=== PATIENT | male | born 1950 | race Caucasian/White ===

== ENCOUNTER 2019-02-19 15:23 | Emergency (ER) | payer MEDICARE ==
[~2019-02-19] VITALS: Ht 177.8 cm; Wt 112.5 kg
== END 2019-02-19 17:01 | disposition home or self-care (01) ==
LOC: ER 15:23
DX: S43.014A Anterior dislocation of right humerus, initial encounter (principal); S43.034A Inferior dislocation of right humerus, initial encounter; W18.30XA Fall on same level, unspecified, initial encounter
CPT/HCPCS: 23650; 73020; 96374-59; 99152; 99283-25; J1170; J2704; J7030

== ENCOUNTER 2019-05-05 03:22 | Emergency (ER) | payer MEDICARE ==
[~2019-05-05] VITALS: Ht 172.7 cm; Wt 113.4 kg
[2019-05-05] MEDS ORDERED: Ventolin/Prove6.7 GM (03:45)
[2019-05-05] MEDS ORDERED: ALLO100 (03:45)
[2019-05-05] MEDS ORDERED: LOSARTAN POTASS50 MG PO (03:46)
[2019-05-05] MEDS ORDERED: Bumetanide2 MG (03:46)
[2019-05-05] MEDS ORDERED: AMLO10 (03:46)
[2019-05-05] MEDS ORDERED: BUDE6HFA INH (03:46)
[2019-05-05] MEDS ORDERED: LABE100 PO (03:46)
[2019-05-05] MEDS ORDERED: Simvastatin10 MG PO (03:46)
== END 2019-05-05 03:55 | disposition home or self-care (01) ==
LOC: ER 03:22
DX: S43.004A Unspecified dislocation of right shoulder joint, initial encounter (principal); J44.9 Chronic obstructive pulmonary disease, unspecified; Z87.891 Personal history of nicotine dependence; W06.XXXA Fall from bed, initial encounter
CPT/HCPCS: 23650; 73030; 99283-25

== ENCOUNTER 2020-09-21 22:34 | Emergency (ER) | payer MEDICARE ==
[~2020-09-21] VITALS: Ht 177.8 cm; Wt 104.3 kg
[~2020-09-21 22:34] MED LIST: ALLO100; AMLO10; BUDE6HFA INH; Bumetanide2 MG; LABE100 PO; LOSARTAN POTASS50 MG PO; Simvastatin10 MG PO; Ventolin/Prove6.7 GM
== END 2020-09-22 02:04 | disposition home or self-care (01) ==
LOC: ER 22:34
DX: S43.014A Anterior dislocation of right humerus, initial encounter (principal); J44.9 Chronic obstructive pulmonary disease, unspecified; Z87.891 Personal history of nicotine dependence; Z79.899 Other long term (current) drug therapy; Z79.52 Long term (current) use of systemic steroids; Z23 Encounter for immunization; W01.0XXA Fall on same level from slipping, tripping and stumbling without subsequent striking against object, initial encounter
CPT/HCPCS: 23650; 36415; 73020; 73030; 90471; 90714; 96374; 99152; 99284-25; J2270; J2704; J7030

== ENCOUNTER → 2020-11-01 | Outpatient (CLI) | payer MEDICARE ==
[2020-11-01 19:18] LABS: Creatinine, Urine Random 33.6 mg/dL (27.00-270.00); Protein, Urine Random 56.6 mg/dL (0.0-11.9); Protein/Creat Ratio, Ur Random 1.7
== END | disposition home or self-care (01) ==
LOC: LAB SHORT 12:58 → LAB 12:58
PROVIDERS: Internal Medicine
DX: N18.4 Chronic kidney disease, stage 4 (severe) (principal)
CPT/HCPCS: 82570; 84156

== ENCOUNTER 2022-07-29 23:01 | Inpatient (IN) | payer MEDICARE ==
[~2022-07-29 23:01] MED LIST changes: -AMLO10; +AMLO10 PO; -BUDE6HFA INH; +BUME2; -Bumetanide2 MG; +LOSA50 PO; -LOSARTAN POTASS50 MG PO; +SYMBICORT 160-4.6 GM INH; -Ventolin/Prove6.7 GM; +Ventolin/Prove6.7 GM INH
[2022-07-30] MEDS ORDERED: AMLO10 PO (15:04)
[2022-07-30] MEDS ORDERED: LOSA50 PO (15:05)
[2022-08-02] MEDS ORDERED: METO50ER PO (09:55)
[2022-08-02] MEDS ORDERED: Tamiflu30 MG PO (09:55)
[2022-08-02] MEDS ORDERED: Prednisone10 MG PO (09:56)
[2022-08-02] MEDS ORDERED: VITAMIN D5000 UNIT PO (09:57)
[2022-08-02] MEDS ORDERED: XARELTO15 MG PO (09:57)
== END 2022-08-02 11:14 | disposition home health service (06) | DRG 65 ==
DX: I63.511 Cerebral infarction due to unspecified occlusion or stenosis of right middle cerebral artery (principal); G81.94 Hemiplegia, unspecified affecting left nondominant side; N17.9 Acute kidney failure, unspecified; I48.21 Permanent atrial fibrillation; J44.1 Chronic obstructive pulmonary disease with (acute) exacerbation; N18.4 Chronic kidney disease, stage 4 (severe); J10.1 Influenza due to other identified influenza virus with other respiratory manifestations; Z23 Encounter for immunization; Z20.822 Contact with and (suspected) exposure to COVID-19; E66.9 Obesity, unspecified; T79.6XXA Traumatic ischemia of muscle, initial encounter; S51.812A Laceration without foreign body of left forearm, initial encounter; S61.512A Laceration without foreign body of left wrist, initial encounter; I12.9 Hypertensive chronic kidney disease with stage 1 through stage 4 chronic kidney disease, or unspecified chronic kidney disease; D63.1 Anemia in chronic kidney disease; E78.5 Hyperlipidemia, unspecified; Z68.35 Body mass index [BMI] 35.0-35.9, adult; Z87.891 Personal history of nicotine dependence; Z79.51 Long term (current) use of inhaled steroids; Z79.899 Other long term (current) drug therapy; W18.39XA Other fall on same level, initial encounter; Y92.009 Unspecified place in unspecified non-institutional (private) residence as the place of occurrence of the external cause

== ENCOUNTER 2022-08-05 10:48 | Emergency (ER) | payer MEDICARE ==
[~2022-08-05] VITALS: Ht 175.3 cm; Wt 104.3 kg
[~2022-08-05 10:48] MED LIST changes: +METO50ER PO; +Prednisone10 MG PO; +Tamiflu30 MG PO; +VITAMIN D5000 UNIT PO; +XARELTO15 MG PO
[2022-08-05 13:35] LABS: Base Excess Venous 2.9 mmol/L; Bicarbonate Venous 25.9 mmol/L (24.0-30.0); PCO2 Venous 44.7 mmHg (38-42)
[2022-08-05 13:36] LABS: BASOPHILS ABSOLUTE AUTO 0.05 K/mm3 (0.00-0.23); BASOPHILS PERCENT AUTO 0 % (0-2); EOSINOPHILS PERCENT AUTO 0 % (0-6); Hematocrit 39.6 % (37.0-53.0); Hemoglobin 13.1 g/dL (13.5-17.5); IMMATURE GRAN ABSOLUTE AUTO 0.81 K/mm3 (0.00-0.10); IMMATURE GRAN PERCENT AUTO 5 % (0-1); LYMPHOCYTES ABSOLUTE AUTO 0.65 K/mm3 (0.84-5.20); LYMPHOCYTES PERCENT AUTO 4 % (21-46); MONOCYTES ABSOLUTE AUTO 1.05 K/mm3 (0.16-1.47); MONOCYTES PERCENT AUTO 6 % (4-13); Mean Corpuscular HGB 31.8 pg (26.0-34.0); Mean Corpuscular HGB Conc 33.1 g/dL (31.5-36.5); Mean Corpuscular Volume 96 fL (80-100); Mean Platelet Volume 9.7 fL (9.1-12.4); NEUTROPHILS ABSOLUTE AUTO 15.35 K/mm3 (1.96-9.15); NEUTROPHILS PERCENT AUTO 86 % (41-73); Platelet Count 311 K/mm3 (150-400); RDW Coefficient Variation 13.7 % (11.7-14.2); Red Blood Cell Count 4.12 M/mm3 (4.30-5.90); White Blood Cell Count 17.91 K/mm3 (4.00-11.30)
[2022-08-05 14:00] LABS: Bun/Creatinine Ratio 21.6 (12.0-20.0); Calcium, Blood 8.5 mg/dL (8.5-10.1); Creatinine, Blood 2.32 mg/dL (0.60-1.20); Potassium, Blood 4.4 mmol/L (3.5-5.5)
[2022-08-05 14:14] LABS: Influenza B, PCR NEGATIVE (NEGATIVE); Resp Syncytial Virus, PCR NEGATIVE (NEGATIVE); SARS-Cov-2 (COVID-19) PCR, MMC NEGATIVE (NEGATIVE)
[2022-08-05 14:15] LABS: Influenza A, PCR POSITIVE (NEGATIVE)
[2022-08-05] MEDS ORDERED: DOXY100 PO (16:53)
[2022-08-05] MEDS ORDERED: FURO20 PO (16:53)
[2022-08-05] MEDS ORDERED: AMOCLA875 PO (16:53)
== END 2022-08-05 17:04 | disposition home or self-care (01) ==
LOC: ER 10:48
PROVIDERS: Student in an Organized Health Care Education/Training Program
DX: J10.1 Influenza due to other identified influenza virus with other respiratory manifestations (principal); R79.89 Other specified abnormal findings of blood chemistry; J18.9 Pneumonia, unspecified organism; J81.1 Chronic pulmonary edema; J44.9 Chronic obstructive pulmonary disease, unspecified; I12.9 Hypertensive chronic kidney disease with stage 1 through stage 4 chronic kidney disease, or unspecified chronic kidney disease; N18.9 Chronic kidney disease, unspecified; Z87.891 Personal history of nicotine dependence; Z20.822 Contact with and (suspected) exposure to COVID-19; Z79.899 Other long term (current) drug therapy; Z79.52 Long term (current) use of systemic steroids; Z79.02 Long term (current) use of antithrombotics/antiplatelets
CPT/HCPCS: 0241U; 71045; 80048; 82803; 83605; 83735; 83880; 85025; 93005; 93010; A9270; J1940

== ENCOUNTER 2024-04-29 08:43 | Inpatient (IN) | payer MEDICARE ==
[~2024-04-29] VITALS: Ht 175.3 cm; Wt 113.4 kg
[2024-04-29] VITALS (25 sets, daily range): BP systolic 109–173; BP diastolic 81–135
[~2024-04-29 08:43] MED LIST changes: +ALBU90OI6 INH; +AMOCLA875 PO; +DOXY100 PO; +FURO20 PO; -Ventolin/Prove6.7 GM INH
[2024-04-29 09:32] LABS: BASOPHILS ABSOLUTE AUTO 0.09 K/mm3 (0.00-0.23); BASOPHILS PERCENT AUTO 1 % (0-2); EOSINOPHILS ABSOLUTE AUTO 0.23 K/mm3 (0.00-0.68); EOSINOPHILS PERCENT AUTO 3 % (0-6); Hematocrit 33.1 % (37.0-53.0); Hemoglobin 10.6 g/dL (13.5-17.5); IMMATURE GRAN ABSOLUTE AUTO 0.09 K/mm3 (0.00-0.10); IMMATURE GRAN PERCENT AUTO 1 % (0-1); LYMPHOCYTES ABSOLUTE AUTO 1.42 K/mm3 (0.84-5.20); LYMPHOCYTES PERCENT AUTO 17 % (21-46); MONOCYTES PERCENT AUTO 11 % (4-13); Mean Corpuscular HGB 31.3 pg (26.0-34.0); Mean Corpuscular Volume 98 fL (80-100); Mean Platelet Volume 10.5 fL (9.1-12.4); NEUTROPHILS ABSOLUTE AUTO 5.58 K/mm3 (1.96-9.15); NEUTROPHILS PERCENT AUTO 67 % (41-73); Platelet Count 228 K/mm3 (150-400); RDW Coefficient Variation 14.7 % (11.7-14.2); RDW Standard Deviation 52.5 fL (35.1-46.3); Red Blood Cell Count 3.39 M/mm3 (4.30-5.90); White Blood Cell Count 8.31 K/mm3 (4.00-11.30)
[2024-04-29 10:03] LABS: Albumin, Blood 1.7 g/dL (3.4-5.0); Albumin/Globulin Ratio 0.5 (0.8-1.8); Bilirubin, Total 0.3 mg/dL (0.1-1.0); Bun/Creatinine Ratio 5.1 (12.0-20.0); Calcium, Blood 6.8 mg/dL (8.5-10.1); Creatinine, Blood 10.9 mg/dL (0.60-1.20); Globulin, Blood 3.7 g/dL (2.2-4.0); Potassium, Blood 4.8 mmol/L (3.5-5.5); Total Protein, Blood 5.4 g/dL (6.4-8.2)
[2024-04-29] MEDS ORDERED: Temazepam 15 MG Cap PO PRN (10:30)
[2024-04-29] MEDS ORDERED: Acetaminophen 325 MG TABLET PO PRN (10:35)
[2024-04-29] MEDS ORDERED: Ondansetron 4 MG TAB PO PRN (10:35)
[2024-04-29] MEDS ORDERED: OxyCODONE HCL 5 MG TAB PO PRN (10:35)
[2024-04-29] MEDS ORDERED: Ondansetron HCl 2 MG / ML 2ML Vial IV PRN (10:35)
[2024-04-29] MEDS ORDERED: HydrALAZINE HCl 20 MG / ML 1ML Vial IV PRN (10:40)
[2024-04-29] MEDS ORDERED: Famotidine 20 MG Tab PO SCH (11:00)
[2024-04-29] MEDS ORDERED: Bumetanide2 MG PO (12:17)
[2024-04-29] MEDS ORDERED: LOSA25 PO (12:22)
[2024-04-29] MEDS ORDERED: Labetalol HCL 5 MG/ML 20MLVIAL IV PRN (13:00)
[2024-04-29] MEDS ORDERED: AmLODIPine Besylate 5 MG Tab PO SCH (14:00)
[2024-04-29 14:20] LABS: International Normalized Ratio 1.01; Prothrombin Time Results 10.8 Sec (9.7-11.5)
[2024-04-29] MEDS ORDERED: Anticoagulant Sod Citrate Soln 3 ML SYR INJ PRN (16:30)
--- NOTE | 2024-04-29 18:59 | NUR ---
Summary. Pt stable this shift. R/IJ trialysis catheter placed this aftenoon by Dr. Roca, pt tolerated procedure well. Dialysis completed post-catheter insertion. Pt tolerated dialysis very well, ate evening meal during treatment and got up independently to bedside commode afterwards. No acute events, see chart for further details.
[2024-04-29] MEDS ORDERED: Mometasone/Formoterol MDI 200/5 mcg 13 GM INH SCH (20:25)
[2024-04-29] MEDS ORDERED: Metoprolol Tartrate 50 MG Tab PO SCH (21:00)
[2024-04-29] MEDS ORDERED: Albuterol 2.5 MG/3 ML VIAL INH PRN (23:25)
[2024-04-30] VITALS (29 sets, daily range): BP systolic 103–157; BP diastolic 71–98
[2024-04-30 03:47] LABS: BASOPHILS ABSOLUTE AUTO 0.06 K/mm3 (0.00-0.23); BASOPHILS PERCENT AUTO 1 % (0-2); EOSINOPHILS ABSOLUTE AUTO 0.19 K/mm3 (0.00-0.68); EOSINOPHILS PERCENT AUTO 2 % (0-6); Hematocrit 30.7 % (37.0-53.0); Hemoglobin 10.1 g/dL (13.5-17.5); IMMATURE GRAN ABSOLUTE AUTO 0.05 K/mm3 (0.00-0.10); IMMATURE GRAN PERCENT AUTO 1 % (0-1); LYMPHOCYTES ABSOLUTE AUTO 1.67 K/mm3 (0.84-5.20); LYMPHOCYTES PERCENT AUTO 19 % (21-46); MONOCYTES ABSOLUTE AUTO 0.96 K/mm3 (0.16-1.47); MONOCYTES PERCENT AUTO 11 % (4-13); Mean Corpuscular HGB 31.1 pg (26.0-34.0); Mean Corpuscular HGB Conc 32.9 g/dL (31.5-36.5); Mean Corpuscular Volume 95 fL (80-100); Mean Platelet Volume 10.1 fL (9.1-12.4); NEUTROPHILS ABSOLUTE AUTO 6.05 K/mm3 (1.96-9.15); NEUTROPHILS PERCENT AUTO 67 % (41-73); Platelet Count 223 K/mm3 (150-400); RDW Coefficient Variation 14.6 % (11.7-14.2); RDW Standard Deviation 49.8 fL (35.1-46.3); Red Blood Cell Count 3.25 M/mm3 (4.30-5.90); White Blood Cell Count 8.98 K/mm3 (4.00-11.30)
--- NOTE | 2024-04-30 04:59 | NUR ---
SHIFT SUMMARY: NO ACUTE CHANGES OVERNIGHT; VSS THROUGHOUT THE SHIFT. PT SLEPT IN RECLINER ON AND OFF THROUGHOUT THE SHIFT. UP MULTIPLE TIMES INDEPENDENTLY TO USE TOILET IN ROOM. PT'S GAIT STEADY. TRIALYSIS CATHETER TO RIJ THAT IS SALINE LOCKED WITH GREEN CAP IN PLACE. LAC PIV PATENT AND SALINE LOCKED. PT INDEPENDENT WITH ADL'S. PT USES CALL LIGHT APPROPRIATELY AND MAKES NEEDS KNOWN. BED LOWERED, CALL LIGHT IN REACH, WILL REPORT OFF TO ONCOMING RN.
[2024-04-30 05:51] LABS: Bun/Creatinine Ratio 5.2 (12.0-20.0); Calcium, Blood 6.7 mg/dL (8.5-10.1); Creatinine, Blood 9.08 mg/dL (0.60-1.20); Potassium, Blood 3.9 mmol/L (3.5-5.5)
[2024-04-30] MEDS ORDERED: Heparin Sodium,Porcine 5,000 UNIT/0.5 ML SDV SC SCH ×2 (09:00→21:00)
[2024-04-30] MEDS ORDERED: Apixaban 5 MG Tab PO SCH (09:00)
[2024-04-30] MEDS ORDERED: Atorvastatin 10 MG Tab PO SCH (09:00)
--- NOTE | 2024-04-30 18:09 | NUR ---
PT IS AWAKE AND SITTING UP IN CHAIR. VSS. DIALYSIS WAS DONE TODAY AND REPORTED THAT THE PTS BP DROPPED SIGNIFICANTLY. BPS HAVE STABILIZED SINCE. PT IS AMBULATING AROUND ROOM AND USING COMMODE INDEPENDENTLY. PT IS ALERT AND ORIENTED, NO ACUTE EVENTS THIS SHIFT, SEE CHART FOR DETAILS.
--- NOTE | 2024-04-30 18:31 | NUR ---
I have observed and read all nursing interventions and documentation by Jayda BORDEN and agree with them.
[2024-05-01] VITALS (8 sets, daily range): BP systolic 123–151; BP diastolic 79–97
[2024-05-01 04:06] LABS: BASOPHILS ABSOLUTE AUTO 0.04 K/mm3 (0.00-0.23); BASOPHILS PERCENT AUTO 1 % (0-2); EOSINOPHILS ABSOLUTE AUTO 0.15 K/mm3 (0.00-0.68); EOSINOPHILS PERCENT AUTO 2 % (0-6); IMMATURE GRAN ABSOLUTE AUTO 0.04 K/mm3 (0.00-0.10); IMMATURE GRAN PERCENT AUTO 1 % (0-1); LYMPHOCYTES ABSOLUTE AUTO 1.58 K/mm3 (0.84-5.20); LYMPHOCYTES PERCENT AUTO 21 % (21-46); MONOCYTES ABSOLUTE AUTO 1.11 K/mm3 (0.16-1.47); MONOCYTES PERCENT AUTO 15 % (4-13); Mean Corpuscular HGB 30.5 pg (26.0-34.0); Mean Corpuscular HGB Conc 32.1 g/dL (31.5-36.5); Mean Corpuscular Volume 95 fL (80-100); Mean Platelet Volume 10.3 fL (9.1-12.4); NEUTROPHILS ABSOLUTE AUTO 4.47 K/mm3 (1.96-9.15); NEUTROPHILS PERCENT AUTO 61 % (41-73); Platelet Count 192 K/mm3 (150-400); RDW Coefficient Variation 14.5 % (11.7-14.2); RDW Standard Deviation 49.1 fL (35.1-46.3); Red Blood Cell Count 2.95 M/mm3 (4.30-5.90); White Blood Cell Count 7.39 K/mm3 (4.00-11.30)
[2024-05-01 04:49] LABS: Albumin, Blood 1.5 g/dL (3.4-5.0); Albumin/Globulin Ratio 0.5 (0.8-1.8); Bilirubin, Total 0.3 mg/dL (0.1-1.0); Bun/Creatinine Ratio 4.6 (12.0-20.0); Calcium, Blood 7.3 mg/dL (8.5-10.1); Creatinine, Blood 7.88 mg/dL (0.60-1.20); Globulin, Blood 3.1 g/dL (2.2-4.0); Phosphorus, Blood 7.8 mg/dL (2.5-4.9); Potassium, Blood 3.4 mmol/L (3.5-5.5); Total Protein, Blood 4.6 g/dL (6.4-8.2)
--- NOTE | 2024-05-01 05:21 | NUR ---
SHIFT SUMMARY: PT A/Ox4 AND COOPERATIVE W/CARE. VSS SBP 140s, NO COMPLAINTS OF CP OR SOB. PT INDEPENDENT IN ROOM THROUGHOUT THE NIGHT, UP TO BATHROOM FREQUENTLY. PT STATES HE USUALLY SLEEPS IN THE CHAIR AND HAS BEEN IN THE CHAIR ALL NIGHT. CALL LIGHT IN REACH, WILL REPORT TO ONCOMING RN.
--- NOTE | 2024-05-01 07:44 | NUR ---
AM NOTE... ASSUMED CARE OF PT AT 0700, PT IS A&Ox4 AND IND IN THE ROOM. PT IS IN SR IN THE 70'S-80'S BP STABLE WITH MAPS>65. PT HAS GENERALIZED 2+ EDEMA. L/S CLEAR T/O ON RA WITH O2 SATS>95%. PLANS FOR A PERMACATH TOMORROW. PT IS VERY ANXIOUS TO GET HOME. WILL CONITNUE TO MONITOR.
[2024-05-01] MEDS ORDERED: Fluticasone 0.05% Nasal Spray PRN (08:00)
[2024-05-01] MEDS ORDERED: Sevelamer Carbonate 800 MG Tab PO SCH (12:30)
--- NOTE | 2024-05-01 17:12 | NUR ---
SHIFT SUMMARY.... NO ACUTE NEGATIVE CHANGES NOTED THIS SHIFT. PT'S VS HAVE BEEN STABLE. PT HAS BEEN IND IN THE ROOM WALKING AROUND AND SITTING IN THE CHAIR. PT IS ANXIOUS TO D/C HOME TOMORROW. PT IS TO HAVE PERMACATH TOMORROW, CONSULT STILL NEEDS TO BE CALLED INTO IR IN THE MORNING. CALL LIGHT IN REACH WILL CONTINUE TO MONITOR UNTIL REPORT IS GIVEN TO ONCOMING RN.
[2024-05-02 02:00] VITALS: BP 128/77
[2024-05-02 04:30] LABS: International Normalized Ratio 0.97; Prothrombin Time Results 10.4 Sec (9.7-11.5)
[2024-05-02 04:47] LABS: Albumin, Blood 1.5 g/dL (3.4-5.0); Anion Gap 14 mmol/L (3-11); Blood Urea Nitrogen 46 mg/dL (8-24); CO2, Blood 22 mmol/L (21-32); Calcium, Blood 6.9 mg/dL (8.5-10.1); Chloride, Blood 112 mmol/L (98-108); Creatinine, Blood 9.21 mg/dL (0.60-1.20); Glomerular Filtration Rate 6 (60-); Glucose, Blood 105 mg/dL (70-99); Phosphorus, Blood 8.7 mg/dL (2.5-4.9); Potassium, Blood 3.5 mmol/L (3.5-5.5); Sodium, Blood 144 mmol/L (136-145)
--- NOTE | 2024-05-02 05:18 | NUR ---
SHIFT SUMMERY PT IS ALERT AND ORIENTED X4, AMBULATORY W/OUT ASSIST. VS WNL, NO COMPLAINTS OF PAIN OVERNIGHT. CONTINENT OF BOWEL AND BLADDER. AFEBRILE. NPO SINCE MIDNIGHT FOR IR TODAY.
[2024-05-02] MEDS ORDERED: Vitamin B Cmplx/Vit C/Folic Ac 1 Tab PO SCH (09:00)
[2024-05-02] MEDS ORDERED: AmLODIPine Besylate 5 MG Tab PO SCH (09:00)
[2024-05-02] MEDS ORDERED: Epoetin Alfa-EPBX 4,000 UNIT/ML 1ML Vial SC SCH (10:55)
[2024-05-02 14:09] VITALS: BP 120/88
[2024-05-02 17:01] VITALS: BP 136/96
[2024-05-02 17:03] VITALS: BP 136/96
[2024-05-02 19:43] VITALS: BP 147/115
[2024-05-03] VITALS (19 sets, daily range): BP systolic 90–151; BP diastolic 67–106
--- NOTE | 2024-05-03 01:01 | NUR ---
PATIENT AWAKE ALERT, ASKING FOR SLEEP MEDICATION. MEDICATED FOR SLEEP WITH GOOD RESULTS. WALKING INDEPENDENTLY IN ROOM WITHOUT DIFFICULTY. DIALYSIS CATHETER INTACT.
--- NOTE | 2024-05-03 01:24 | NUR ---
PATIENT TRANSFERRED VIA WHEELCHAIR IN NO DISTRESS. PATIENT HELPED TO BATHROOM WITHOUT DIFFICULTY. NO COMPLAINTS FROM PATIENT.
--- NOTE | 2024-05-03 01:40 | NUR ---
PT ARRIVED ON UNIT AT 0118 VIA E/C AND AMBULATED INDEPENDENTLY TO THE CHAIR. VSS, NO ACUTE EVENTS AT THIS TIME. PT NPO
--- NOTE | 2024-05-03 06:31 | NUR ---
SHIFT SUMMARY PT ARRIVED ON UNIT AT 0118 VIA W/C AND AMBULATED INDEPENDENTLY TO THE BED. VSS, NO COMPLAINTS OF CP/PRESSURE OR SOB. PT SPENT REST OF SHIFT WITH EYES CLOSED AND RESPIRATIONS EVEN AND UNLABORED. PT NPO FOR A PERMACATH PLACEMENT. NO ACUTE EVENTS AT THIS TIME. PT REPOSITIONED INDEPENDENTLY. FALL PRECAUTIONS IN PLACE AND CALL LIGHT IN REACH.
[2024-05-03 07:07] LABS: Albumin, Blood 1.8 g/dL (3.4-5.0); Anion Gap 16 mmol/L (3-11); Blood Urea Nitrogen 50 mg/dL (8-24); CO2, Blood 19 mmol/L (21-32); Calcium, Blood 7.4 mg/dL (8.5-10.1); Chloride, Blood 112 mmol/L (98-108); Glomerular Filtration Rate 5 (60-); Glucose, Blood 85 mg/dL (70-99); Phosphorus, Blood 7.8 mg/dL (2.5-4.9); Potassium, Blood 3.6 mmol/L (3.5-5.5); Sodium, Blood 143 mmol/L (136-145)
--- NOTE | 2024-05-03 07:18 | NUR ---
CALLED DR CARMONA- PT HAD CRITICAL VALUE FROM LAB. CREATININE 10.10 CALLED DOCTOR HE IS AWARE. PT GOING FOR PERMACATH PLACEMENT LATER TODAY. BEDSIDE REPORT COMPLETED WITH NIGHT RN. NO S&S OF DISTRESS NOTED.
[2024-05-03 07:54] LABS: QUANTIFERON MITOGEN MINUS NIL 9.97 IU/mL; QUANTIFERON NIL 0.03 IU/mL
[2024-05-03 08:22] LABS: Hematocrit 30.2 % (37.0-53.0); Hemoglobin 9.5 g/dL (13.5-17.5)
[2024-05-03] MEDS ORDERED: Sevelamer Carbonate 800 MG Tab PO SCH (08:30)
--- NOTE | 2024-05-03 11:54 | NUR ---
CALLED DR NASH- PT IS ON A FILL IN BASIS FOR THE PERMACATH PLACEMENT. THIS RN CALLED GLASS CALIBRATOR AND LEFT A MESSAGE, STILL NO CALL BACK. CALLED DR NASH THE PT HAS A CREATININE OF 10 AND THIS RN WAS UNDER THE IMPRESSION THE PT WAS TO RECIEVE Tx TODAY. DR NASH WILL CONTACT [facility] AND THE PT WILL HAVE DIALYSIS NOW.
[2024-05-03] MEDS ORDERED: Anticoagulant Sod Citrate Soln 3 ML SYR INJ PRN (13:40)
--- NOTE | 2024-05-03 15:44 | NUR ---
SHIFT SUMMARY- PT ALERT, ORIENTED AND INDEPENDENT IN THE ROOM. PT HAS REMAINED NPO T/O THE DAY TODAY. HE IS CURRENTLY RECIEVING DIALYSIS AT THE BEDSIDE RIGHT NOW USING THE TEMP IJ THAT IS IN PLACE. PLAN WAS FOR THE PT TO HAVE PERMACATH PLACED THIS AM BEOFRE 9AM AND THEN BE DIALIZED. PT IS STILL AWAITING PERMACATH PROCEDURE. DR NASH WAS CONTACTED AND HE REQUESTED THE PT HAVE DIALYSIS NOW RATHER THAN WAITING ANY LONGER. SPOKE TO MUMPS DEVELOPER, IT IS UNCLEAR WHEN THE PT WILL HAVE THE PROCEDURE. INSTRUCTED TO KEEP THE PT NPO FOR THE PROCEDURE WITH SIPS OF WATER FOR MEDS. PT REMAINS NPO FOR PLANNED PROCEDURE. HE IS IN BED, RECIEVING DIALYSIS NO S&S OF DISTRESS NOTED.
[2024-05-04] VITALS (16 sets, daily range): BP systolic 93–136; BP diastolic 62–96
--- NOTE | 2024-05-04 06:44 | NUR ---
DESK TOP PUBLISHER PATIENT IS A&OX4, VITALS ARE STABLE, ON ROOM AIR, DENIED ANY PAIN. NOT ON TELE. PATIENT IS INDEPENDENT IN ROOM, AND USES THE CALL LIGHT APPROPRIATELY. PATIENT WAS NPO AT MIDNIGHT DUE BECAUSE HE HAS A TEMP CATH PLACEMENT THIS MORNING. PATIENT IS HOPING TO BE D/C AFTER THE PROCEDURE.
[2024-05-04 08:05] LABS: HEPATITIS B SURFACE ANTIBODY <3.10 IU/L
[2024-05-04] MEDS ORDERED: NS 250 ML IV ONE (08:18)
[2024-05-04] MEDS ORDERED: Heparin Sodium 1000 Units/ML 10ML MDV ONE (08:19)
[2024-05-04 08:41] LABS: HEPATITIS B SURFACE ANTIGEN Negative (Negative)
[2024-05-04] MEDS ORDERED: Midazolam HCl 1MG / ML 2ML Vial ONE (08:52)
[2024-05-04] MEDS ORDERED: FentaNYL Citrate 50 MCG/ML 2 ML Injection ONE (08:53)
[2024-05-04] MEDS ORDERED: NS 500 ML IV ONE (08:53)
[2024-05-04] MEDS ORDERED: Anticoagulant Sod Citrate Soln 3 ML SYR INJ PRN (11:10)
[2024-05-04 11:11] LABS: Albumin, Blood 1.8 g/dL (3.4-5.0); Anion Gap 13 mmol/L (3-11); Blood Urea Nitrogen 33 mg/dL (8-24); Bun/Creatinine Ratio 4.6 (12.0-20.0); CO2, Blood 25 mmol/L (21-32); Calcium, Blood 7.4 mg/dL (8.5-10.1); Chloride, Blood 107 mmol/L (98-108); Creatinine, Blood 7.22 mg/dL (0.60-1.20); Glomerular Filtration Rate 7 (60-); Glucose, Blood 86 mg/dL (70-99); Phosphorus, Blood 5.9 mg/dL (2.5-4.9); Potassium, Blood 3.4 mmol/L (3.5-5.5); Sodium, Blood 142 mmol/L (136-145)
[2024-05-04 14:31] LABS: HEPATITIS A ANTIBODY, IGM Negative (Negative); HEPATITIS B CORE ANTIBODY, IGM Negative (Negative); HEPATITIS B SURFACE ANTIGEN Negative (Negative); HEPATITIS C AB CIA INTERP Negative (Negative); HEPATITIS C ANTIBODY CIA INDEX 0.06 IV
[2024-05-04] MEDS ORDERED: NEPHRO VITAMIN0.8 MG PO (14:53)
[2024-05-04] MEDS ORDERED: SEVEC800 PO (14:54)
--- NOTE | 2024-05-04 15:11 | NUR ---
DISCHARGE NOTE- DR NASH CAME TO SEE THE PT AND TELL HIM HE HAS ARRANGED FOR A CHAIR TIME FOR THE PT AT [facility] FOR M,W,F AT 3:15. PT IS ADIMANT HE IS NOT GOING TO COME IN TO TOWN ON THURSDAY. STAFF SUGESTED ALTERNATIVES SUCH COMPLETING THE PAPERWORK ON THURSDAY AND TRYING TO HAVE [facility] RUN HIM ON THURSDAY (PER DR NASH) PT DECLINES TO DO SO STATING HE HAS PEOPLE COMING AND HE IS NOT COMING INTO TOWN. DR AYALA IS AWARE. CARE MANAGEMENT HAS EDUCATED THE PT ABOUT THE SCHEDULE. CONTACT INFO FOR [facility] PROVIDED TO THE PT. THIS RN EXPLAINED TO THE PT THE IMPORTANCE OF ATTENDING ALL DIALYSIS APPOINTMENTS AND THAT MISSING ONE APPOINTMENT CAN HAVE A NEGATIVE EFFECT ON THE PT HEALTH, HE ACKNOWLEDGED UNDERSTANDIG OF THIS. PT WAS GIVEN VERBAL AND WRITTEN DISCHARGE INSTRUCTIONS AND ACKNOWLEDGED UNDERSTANDING OF THEM. IV DC'D PRIOR TO PT DISCHARGE. PT STATES HE WILL DRIVE HIMSELF AND WILL BE ESCORTED OUT VIA WC. NO S&S OF DISTRESS AT THE TIME OF DISCHARGE.
== END 2024-05-04 15:44 | disposition home or self-care (01) | DRG 674 ==
LOC: ER 08:43 → ICUE 09:59 → MEDS 05-03 01:18 → ENPENDDIS 05-04 14:51 → MEDS 05-04 15:44
PROVIDERS: Hospitalist; Internal Medicine; Student in an Organized Health Care Education/Training Program; ADMIT Internal Medicine
PROC: 0JH63XZ Insertion of Tunneled Vascular Access Device into Chest Subcutaneous Tissue and Fascia, Percutaneous Approach (ICD-10-PCS; principal; 2024-05-04)
PROC: 02HV33Z Insertion of Infusion Device into Superior Vena Cava, Percutaneous Approach (ICD-10-PCS; 2024-05-04)
PROC: B518ZZA Fluoroscopy of Superior Vena Cava, Guidance (ICD-10-PCS; 2024-05-04)
PROC: B548ZZA Ultrasonography of Superior Vena Cava, Guidance (ICD-10-PCS; 2024-05-04)
PROC: 5A1D70Z Performance of Urinary Filtration, Intermittent, Less than 6 Hours Per Day (ICD-10-PCS; 2024-05-04)
DX: N17.9 Acute kidney failure, unspecified (principal); E87.20 Acidosis, unspecified; I12.0 Hypertensive chronic kidney disease with stage 5 chronic kidney disease or end stage renal disease; I48.20 Chronic atrial fibrillation, unspecified; E66.9 Obesity, unspecified; N18.6 End stage renal disease; E78.5 Hyperlipidemia, unspecified; J44.9 Chronic obstructive pulmonary disease, unspecified; D63.1 Anemia in chronic kidney disease; E87.6 Hypokalemia; N25.81 Secondary hyperparathyroidism of renal origin; Z87.891 Personal history of nicotine dependence; Z86.73 Personal history of transient ischemic attack (TIA), and cerebral infarction without residual deficits; Z79.899 Other long term (current) drug therapy; Z79.51 Long term (current) use of inhaled steroids; Z79.01 Long term (current) use of anticoagulants; Z68.36 Body mass index [BMI] 36.0-36.9, adult; Z79.2 Long term (current) use of antibiotics
CPT/HCPCS: 36415; 36556; 71045; 76937; 80048; 80053; 80069; 80074; 84100; 85014; 85018; 85025; 85610; 85730; 86480; 87340; 93306; 94640; 94664; 94760; 97161; 99152; 99153; 99285-25; A9270; C1750; C1752; C1769; C1894; J1644; J2250; J3010; J7040; J7050; Q5106

== ENCOUNTER 2024-08-12 15:39 | Observation (INO) | payer MEDICARE ==
[~2024-08-12] VITALS: Ht 175.3 cm; Wt 101.1 kg
[~2024-08-12 15:39] MED LIST changes: +Bumetanide2 MG PO; +LOSA25 PO; +NEPHRO VITAMIN0.8 MG PO; +SEVEC800 PO
[2024-08-12 16:16] LABS: BASOPHILS ABSOLUTE AUTO 0.06 K/mm3 (0.00-0.23); BASOPHILS PERCENT AUTO 1 % (0-2); EOSINOPHILS ABSOLUTE AUTO 0.09 K/mm3 (0.00-0.68); EOSINOPHILS PERCENT AUTO 1 % (0-6); Hematocrit 30.7 % (37.0-53.0); Hemoglobin 9.7 g/dL (13.5-17.5); IMMATURE GRAN ABSOLUTE AUTO 0.05 K/mm3 (0.00-0.10); IMMATURE GRAN PERCENT AUTO 1 % (0-1); LYMPHOCYTES PERCENT AUTO 14 % (21-46); MONOCYTES ABSOLUTE AUTO 0.88 K/mm3 (0.16-1.47); MONOCYTES PERCENT AUTO 12 % (4-13); Mean Corpuscular HGB 29.8 pg (26.0-34.0); Mean Corpuscular HGB Conc 31.6 g/dL (31.5-36.5); Mean Corpuscular Volume 95 fL (80-100); Mean Platelet Volume 9.6 fL (9.1-12.4); NEUTROPHILS ABSOLUTE AUTO 5.11 K/mm3 (1.96-9.15); NEUTROPHILS PERCENT AUTO 71 % (41-73); Platelet Count 228 K/mm3 (150-400); RDW Coefficient Variation 15.3 % (11.7-14.2); RDW Standard Deviation 52.9 fL (35.1-46.3); Red Blood Cell Count 3.25 M/mm3 (4.30-5.90); White Blood Cell Count 7.19 K/mm3 (4.00-11.30)
[2024-08-12 16:49] LABS: Albumin, Blood 2.6 g/dL (3.4-5.0); Albumin/Globulin Ratio 0.6 (0.8-1.8); Bilirubin, Total 0.7 mg/dL (0.1-1.0); Bun/Creatinine Ratio 3.8 (12.0-20.0); Calcium, Blood 9.2 mg/dL (8.5-10.1); Creatinine, Blood 9.37 mg/dL (0.60-1.20); Globulin, Blood 4.1 g/dL (2.2-4.0); Potassium, Blood 5.1 mmol/L (3.5-5.5); Total Protein, Blood 6.7 g/dL (6.4-8.2)
[2024-08-12 17:39] LABS: Influenza A, PCR NEGATIVE (NEGATIVE); Influenza B, PCR NEGATIVE (NEGATIVE); Resp Syncytial Virus, PCR NEGATIVE (NEGATIVE); SARS-Cov-2 (COVID-19) PCR, MMC NEGATIVE (NEGATIVE)
[2024-08-12] MEDS ORDERED: Metoprolol Tartrate 1 MG/ML 5 ML VIAL IV PRN (19:25)
[2024-08-12] MEDS ORDERED: Ondansetron HCl 2 MG / ML 2ML Vial IV PRN (19:25)
[2024-08-12] MEDS ORDERED: FLU VACC TS2024-25(6MOS UP)/PF 45 MCG/0.5 ML SYRINGE IM SCH (19:30)
[2024-08-12] MEDS ORDERED: Acetaminophen 325 MG TABLET PO PRN (19:30)
[2024-08-12] MEDS ORDERED: Albuterol 2.5 MG/3 ML VIAL INH PRN (19:30)
[2024-08-12] MEDS ORDERED: Mometasone/Formoterol MDI 100/5 mcg 13 GM INH SCH (19:35)
[2024-08-12] MEDS ORDERED: Metoprolol Succinate 50 MG TABCR PO SCH (21:00)
[2024-08-12] MEDS ORDERED: Apixaban 5 MG Tab PO SCH (21:00)
[2024-08-12 21:26] VITALS: BP 148/95
[2024-08-13] VITALS (14 sets, daily range): BP systolic 124–159; BP diastolic 74–97
[2024-08-13 05:28] LABS: BASOPHILS ABSOLUTE AUTO 0.05 K/mm3 (0.00-0.23); BASOPHILS PERCENT AUTO 1 % (0-2); EOSINOPHILS ABSOLUTE AUTO 0.14 K/mm3 (0.00-0.68); EOSINOPHILS PERCENT AUTO 2 % (0-6); Hematocrit 26.7 % (37.0-53.0); Hemoglobin 8.9 g/dL (13.5-17.5); IMMATURE GRAN ABSOLUTE AUTO 0.08 K/mm3 (0.00-0.10); IMMATURE GRAN PERCENT AUTO 1 % (0-1); LYMPHOCYTES PERCENT AUTO 17 % (21-46); MONOCYTES ABSOLUTE AUTO 0.89 K/mm3 (0.16-1.47); MONOCYTES PERCENT AUTO 12 % (4-13); Mean Corpuscular HGB 30.9 pg (26.0-34.0); Mean Corpuscular HGB Conc 33.3 g/dL (31.5-36.5); Mean Corpuscular Volume 93 fL (80-100); NEUTROPHILS ABSOLUTE AUTO 4.83 K/mm3 (1.96-9.15); NEUTROPHILS PERCENT AUTO 67 % (41-73); RDW Coefficient Variation 15.3 % (11.7-14.2); RDW Standard Deviation 51.4 fL (35.1-46.3); Red Blood Cell Count 2.88 M/mm3 (4.30-5.90); White Blood Cell Count 7.19 K/mm3 (4.00-11.30)
[2024-08-13 05:50] LABS: Platelet Count 232 K/mm3 (150-400)
[2024-08-13 06:06] LABS: Magnesium, Blood 2.2 mg/dL (1.6-2.4)
[2024-08-13 06:08] LABS: Albumin, Blood 2.3 g/dL (3.4-5.0); Albumin/Globulin Ratio 0.6 (0.8-1.8); Bilirubin, Total 0.7 mg/dL (0.1-1.0); Calcium, Blood 8.8 mg/dL (8.5-10.1); Globulin, Blood 3.8 g/dL (2.2-4.0); Phosphorus, Blood 7.7 mg/dL (2.5-4.9); Potassium, Blood 5.4 mmol/L (3.5-5.5); Total Protein, Blood 6.1 g/dL (6.4-8.2)
[2024-08-13 06:10] LABS: Bun/Creatinine Ratio 4.1 (12.0-20.0); Creatinine, Blood 10.2 mg/dL (0.60-1.20)
--- NOTE | 2024-08-13 06:13 | NUR ---
Shift Summary Pt admitted to this floor yesterday d/t increased weakness and dyspnea, he missed his HD appointment which are normally scheduled M/W/. Pt was found to have volume overload. He has +2 BLE edema, wet cough and dyspnea with exertion. Plan is for nephrology ([facility]) to see pt this AM and likely to get HD today. Pt is AOx4, independent in the room. He c/o of shortness of breath, placed him on 2L O2 t/o the night. He is on cont. BIOX as ordered, no desaturation events. On tele, came in with AFIB but converted to NSR at 2300 where he remains now in the 80s.
[2024-08-13] MEDS ORDERED: Sevelamer Carbonate 800 MG Tab PO SCH (08:30)
[2024-08-13] MEDS ORDERED: Anticoagulant Sod Citrate Soln 3 ML SYR INJ PRN (08:40)
[2024-08-13] MEDS ORDERED: Atorvastatin 10 MG Tab PO SCH (09:00)
[2024-08-13] MEDS ORDERED: AmLODIPine Besylate 5 MG Tab PO SCH (09:00)
[2024-08-13] MEDS ORDERED: Vitamin B Cmplx/Vit C/Folic Ac 1 Tab PO SCH (09:00)
[2024-08-13] MEDS ORDERED: ELIQUIS5 M2 PO (16:04)
--- NOTE | 2024-08-13 17:56 | NUR ---
PT AWAKE AND SITTING IN CHAIR AT BS DURING SHIFT REPORT AND THRU MOST OF THE DAY. DR Harris NOTIFIED THIS AM FOR RENAL CONSULT. NEW ORDERS PLACED FOR DIALYSIS THIS AM. DR LAMAS HERE TO SEE PT PRIOR TO DIALYSIS. PT REMAINED IN SR ON TELE SINCE LAST NIGHT. PT RETURNED FROM DIALYSIS AND WANTING TO GO HOME. DR LAMAS NOTIFIED OF PT'S REQUEST AND RETURNED TO PT'S RM TO DISCUSS PLAN OF CARE, AFTER TALKING WITH DR Harris. D/C ORDERS PLACED. MEDICATION FAXED TO [facility], PER PT REQUEST. D/C INSTRUCTIONS REVIEWED WITH PT AND DAUGHTER; PT VERBALIZED UNDERSTANDING. PT ASSISTED OUT TO DAUGHTER'S CAR VIA W/C BY SCHOOL HEALTH AIDE, WITH ALL BELONGINGS.
[2024-08-13] MEDS ORDERED: Rivaroxaban 2.5 MG TABLET PO SCH (18:00)
== END 2024-08-13 16:28 | disposition home or self-care (01) ==
LOC: ER 15:39 → ERHOLD 15:40 → MEDS 15:40 → ERHOLD 15:40 → MEDS 21:26
PROVIDERS: Emergency Medicine; Student in an Organized Health Care Education/Training Program; ADMIT Student in an Organized Health Care Education/Training Program
DX: I48.20 Chronic atrial fibrillation, unspecified (principal); I12.0 Hypertensive chronic kidney disease with stage 5 chronic kidney disease or end stage renal disease; N18.6 End stage renal disease; E78.5 Hyperlipidemia, unspecified; J44.9 Chronic obstructive pulmonary disease, unspecified; Z99.2 Dependence on renal dialysis; Z87.891 Personal history of nicotine dependence; Z79.01 Long term (current) use of anticoagulants; Z79.899 Other long term (current) drug therapy; Z86.73 Personal history of transient ischemic attack (TIA), and cerebral infarction without residual deficits
CPT/HCPCS: 0241U; 36415; 71046; 80053; 83735; 83880; 84100; 84484; 85025; 93005; 93010; 94640; 94664; 94760; 94762; 99285-25; A9270; G0257; G0378

== ENCOUNTER 2024-10-23 21:44 | Inpatient (IN) | payer MEDICARE ==
[~2024-10-23] VITALS: Ht 175.3 cm; Wt 93.7 kg
[~2024-10-23 21:44] MED LIST changes: +ELIQUIS5 M2 PO
[2024-10-23 22:15] LABS: BASOPHILS ABSOLUTE AUTO 0.06 K/mm3 (0.00-0.23); BASOPHILS PERCENT AUTO 1 % (0-2); EOSINOPHILS PERCENT AUTO 1 % (0-6); Hemoglobin 9.8 g/dL (13.5-17.5); IMMATURE GRAN ABSOLUTE AUTO 0.03 K/mm3 (0.00-0.10); IMMATURE GRAN PERCENT AUTO 0 % (0-1); LYMPHOCYTES ABSOLUTE AUTO 1.26 K/mm3 (0.84-5.20); LYMPHOCYTES PERCENT AUTO 17 % (21-46); MONOCYTES ABSOLUTE AUTO 0.95 K/mm3 (0.16-1.47); MONOCYTES PERCENT AUTO 13 % (4-13); Mean Corpuscular HGB 30.5 pg (26.0-34.0); Mean Corpuscular HGB Conc 31.6 g/dL (31.5-36.5); Mean Corpuscular Volume 97 fL (80-100); Mean Platelet Volume 10.2 fL (9.1-12.4); NEUTROPHILS ABSOLUTE AUTO 5.04 K/mm3 (1.96-9.15); NEUTROPHILS PERCENT AUTO 68 % (41-73); Platelet Count 246 K/mm3 (150-400); RDW Coefficient Variation 17.3 % (11.7-14.2); RDW Standard Deviation 59.7 fL (35.1-46.3); Red Blood Cell Count 3.21 M/mm3 (4.30-5.90); White Blood Cell Count 7.44 K/mm3 (4.00-11.30)
[2024-10-23] MEDS ORDERED: Metoprolol Succinate 50 MG TABCR PO ONE (22:25)
[2024-10-23] MEDS ORDERED: AmLODIPine Besylate 5 MG Tab PO ONE (22:30)
[2024-10-23 22:45] LABS: Albumin, Blood 3.1 g/dL (3.4-5.0); Albumin/Globulin Ratio 0.9 (0.8-1.8); Bilirubin, Total 0.4 mg/dL (0.1-1.0); Bun/Creatinine Ratio 4.4 (12.0-20.0); Calcium, Blood 9.6 mg/dL (8.5-10.1); Creatinine, Blood 10.2 mg/dL (0.60-1.20); Globulin, Blood 3.5 g/dL (2.2-4.0); Potassium, Blood 7.2 mmol/L (3.5-5.5); Total Protein, Blood 6.6 g/dL (6.4-8.2)
[2024-10-23] MEDS ORDERED: Insulin Regular 100 Unit/ML 1ML Dose IV ONE (22:50)
[2024-10-23] MEDS ORDERED: Dextrose 50% 50 ML Syringe IV ONE (22:50)
[2024-10-23] MEDS ORDERED: Sodium Bicarb 8.4% 50 mEq Syringe IV ONE (22:50)
[2024-10-23] MEDS ORDERED: Calcium Gluconate 10% 100 MG/ML INJ IV ONE (22:50)
[2024-10-23] MEDS ORDERED: Dextrose 50% 50 ML Vial IV ONE (22:55)
[2024-10-23] MEDS ORDERED: Sodium Bicarb 8.4% 1 MEQ/ML 50 ML Vial IV ONE (22:55)
[2024-10-23 23:01] LABS: CORONAVIRUS COVID-19 AG Negative (NEGATIVE); INFLUENZA A AG Negative (NEGATIVE); INFLUENZA B AG Negative (NEGATIVE)
[2024-10-24] VITALS (26 sets, daily range): BP systolic 133–210; BP diastolic 83–116
[2024-10-24 00:48] LABS: Potassium, Blood 5.7 mmol/L (3.5-5.5)
[2024-10-24] MEDS ORDERED: FLU VACC TS2024-25(6MOS UP)/PF 45 MCG/0.5 ML SYRINGE IM ONE (00:55)
[2024-10-24] MEDS ORDERED: Ondansetron 4 MG TAB PO PRN (00:55)
[2024-10-24 00:58] LABS: Magnesium, Blood 2.6 mg/dL (1.6-2.4); Phosphorus, Blood 6.7 mg/dL (2.5-4.9)
[2024-10-24] MEDS ORDERED: BUMETANIDE2 M6 PO (04:20)
[2024-10-24] MEDS ORDERED: XARELTO15 MG PO (04:20)
[2024-10-24] MEDS ORDERED: ALLOPURINOL100 M1 PO (04:20)
[2024-10-24] MEDS ORDERED: Bumetanide 0.25 MG/ML 4ML ViaL IV ONE (05:37)
[2024-10-24 05:59] LABS: Base Excess Venous -1.2 mmol/L; Bicarbonate Venous 22.6 mmol/L (24.0-30.0); PCO2 Venous 51.6 mmHg (38-42)
[2024-10-24 06:25] LABS: BASOPHILS ABSOLUTE AUTO 0.05 K/mm3 (0.00-0.23); BASOPHILS PERCENT AUTO 1 % (0-2); EOSINOPHILS ABSOLUTE AUTO 0.04 K/mm3 (0.00-0.68); EOSINOPHILS PERCENT AUTO 1 % (0-6); Hemoglobin 10.9 g/dL (13.5-17.5); IMMATURE GRAN ABSOLUTE AUTO 0.04 K/mm3 (0.00-0.10); IMMATURE GRAN PERCENT AUTO 1 % (0-1); LYMPHOCYTES PERCENT AUTO 16 % (21-46); MONOCYTES ABSOLUTE AUTO 0.89 K/mm3 (0.16-1.47); MONOCYTES PERCENT AUTO 11 % (4-13); Mean Corpuscular HGB 30.9 pg (26.0-34.0); Mean Corpuscular HGB Conc 32.1 g/dL (31.5-36.5); Mean Corpuscular Volume 96 fL (80-100); Mean Platelet Volume 10.2 fL (9.1-12.4); NEUTROPHILS ABSOLUTE AUTO 6.04 K/mm3 (1.96-9.15); NEUTROPHILS PERCENT AUTO 72 % (41-73); Platelet Count 264 K/mm3 (150-400); RDW Coefficient Variation 17.8 % (11.7-14.2); RDW Standard Deviation 60.8 fL (35.1-46.3); Red Blood Cell Count 3.53 M/mm3 (4.30-5.90); White Blood Cell Count 8.36 K/mm3 (4.00-11.30)
--- NOTE | 2024-10-24 06:53 | NUR ---
ADMISSION: ABA WAS ADMITTED ON 5L VIA NC SPO2 AT 100% WAS HYPERTENSIVE 160'S. RR IN THE 20'S. CHNAGED INTO A GOWN, DECLINED FLU SHOT AT THIS TIME. DENIED CHEST PAIN PRESSURE MILD SOB AT REST. PATIENT ASSISTED VIA 2P AND FWW TO [facility], AFTER RETURNING BECAME OBVIOUSLY SOB. RR IN THE UPPER 30'S LOWER 40'S CALL TO PROVIDER, BUMEX 2MG GIVEN, BIPAP STARTED AND DURABILITY ENGINEER CALLED BY SEAT COVERS TRIMMER. PATIENT WOB DECREASED SIGNIFICANTLY ON BIPAP WAS ABLE TO REST. DURING HIS TIME OF INCREASED WOB, BLOOD PRESSURE UP TO THE 200'S, AND HR IN THE 110'S. SEVERE ANXIETY AND ENDORSING SOB. EDUCATED PATIENT ON CONDITION. BLOOD PRESSURE DID IMPROVE WHILE ON BIPAP WELL. VBG FOR BASELINE OBTAINED. CURRENT BIPAP 16/ ON 30% FIO2. DENIES CHEST PAIN PRESSURE OR SOB.
[2024-10-24 07:03] LABS: Magnesium, Blood 2.9 mg/dL (1.6-2.4)
[2024-10-24 07:10] LABS: Albumin, Blood 3.2 g/dL (3.4-5.0); Albumin/Globulin Ratio 0.9 (0.8-1.8); Bilirubin, Total 0.4 mg/dL (0.1-1.0); Bun/Creatinine Ratio 4.3 (12.0-20.0); Calcium, Blood 9.8 mg/dL (8.5-10.1); Globulin, Blood 3.7 g/dL (2.2-4.0); Total Protein, Blood 6.9 g/dL (6.4-8.2)
[2024-10-24 07:12] LABS: Creatinine, Blood 10.6 mg/dL (0.60-1.20); Potassium, Blood 6.7 mmol/L (3.5-5.5)
[2024-10-24 07:57] LABS: C DIFFICILE DNA NEGATIVE (Negative)
--- NOTE | 2024-10-24 08:20 | NUR ---
UPDATE PT TAKEN TO DIALYSIS ROOM FOR TREATMENT. WILL AWAIT RETURN
[2024-10-24] MEDS ORDERED: Sodium Zirconium Cyclosilicate 10 GM Packet PO SCH (09:00)
[2024-10-24] MEDS ORDERED: Heparin Sodium 5000 Units/ML 1ML MDV SC SCH (09:00)
--- NOTE | 2024-10-24 11:38 | NUR ---
UPDATE PT RETURNED FROM DIALYSIS TREATMENT. PT MORE AWAKE, BUT FORGETFUL AT THIS TIME. PT ASKING FOR RIDE HOME AFTER DIALYSIS. PT INFORMED HE IS ADMITTED TO THE HOSPITAL AND WILL BE STAYING. PT IS EASILY REORIENTED. BP STILL ELEVATED. PT REQUESTING BENADRYL FOR ITCHING. WILL CALL DR. BEASLEY AND NOTIFY. PER DIALYSIS NURSE, PT HAD 4L REMOVED. PT NOW TOLERATING BREAK FROM BIPAP ON 2L NC WITH SATS >90%.
[2024-10-24] MEDS ORDERED: Acetaminophen 325 MG TABLET PO PRN (13:15)
--- NOTE | 2024-10-24 14:26 | NUR ---
UPDATE PT CONTINUES TO COMPLAIN OF HEADACHE AFTER TYLENOL ADMINISTRATION. BP CHECKED AND ELEVATED. DR. ALARCON CALLED AND NOTIFIED. WILL MEDICATE PER NEW ORDERS.
[2024-10-24] MEDS ORDERED: Albuterol HFA200 ACT/6.7 GM INH INH PRN (14:40)
[2024-10-24] MEDS ORDERED: Mometasone/Formoterol MDI 200/5 mcg 13 GM INH SCH (14:40)
[2024-10-24] MEDS ORDERED: AmLODIPine Besylate 5 MG Tab PO SCH (15:00)
--- NOTE | 2024-10-24 16:30 | NUR ---
SHIFT SUMMARY PT REMAINS ALERT AND ORIENTED. PT DID HAVE SOME FORGETFULLNESS THIS AFTERNOON, BUT ANSWERING ORIENTATION QUESTIONS APPROPRIATELY THIS EVENING. BP REMAINS ELEVATED. HR REMAINS SINUS JEFFREY TO SINUS RHYTHM. PT CONTINUES TO COMPLAIN OF HEADACHE. PT UP TO CHAIR MULTIPLE TIMES THIS SHIFT WITH 1 ASSIST. NO BM NOTED THIS SHIFT. WILL REPORT OFF TO ONCOMING RN
[2024-10-24] MEDS ORDERED: DiphenhydrAMINE HCL 25 MG Cap PO PRN (16:55)
[2024-10-24] MEDS ORDERED: HYDROcodone 5-APAP 325 TAB PO PRN (16:55)
[2024-10-24 18:55] LABS: Bun/Creatinine Ratio 3.7 (12.0-20.0); Calcium, Blood 9.2 mg/dL (8.5-10.1); Creatinine, Blood 7.52 mg/dL (0.60-1.20); Potassium, Blood 5.1 mmol/L (3.5-5.5)
[2024-10-24] MEDS ORDERED: Albuterol 2.5 MG/3 ML VIAL INH PRN (20:10)
[2024-10-25] VITALS (22 sets, daily range): BP systolic 103–181; BP diastolic 79–155
--- NOTE | 2024-10-25 04:45 | NUR ---
EOS: PATIENT DID WAKE UP SLIGHTLY FORGETFUL, EASILY REDIRECTABLE, HAS SLEPT MINIMALLY THROUGH THE SHIFT, A/O X 3. NO ACUTE CONCERN, HAS BEEN ABLE TO BE ON RA THROUGH THE NIGHT WITHOUT INCREASED WOB, 1P STAND PIVOT TO BSC, TOLERATING WELL. PATIENT DENIES CHEST PAIN PRESSURE OR SOB AT REST. DYSPNIC WITH EXERTION.
[2024-10-25 05:07] LABS: Albumin, Blood 2.8 g/dL (3.4-5.0); Anion Gap 13 mmol/L (3-11); Blood Urea Nitrogen 28 mg/dL (8-24); Bun/Creatinine Ratio 3.5 (12.0-20.0); CO2, Blood 28 mmol/L (21-32); Calcium, Blood 8.9 mg/dL (8.5-10.1); Chloride, Blood 99 mmol/L (98-108); Creatinine, Blood 7.96 mg/dL (0.60-1.20); Glomerular Filtration Rate 7 (60-); Glucose, Blood 103 mg/dL (70-99); Phosphorus, Blood 6.9 mg/dL (2.5-4.9); Sodium, Blood 135 mmol/L (136-145)
[2024-10-25] MEDS ORDERED: Vitamin B Cmplx/Vit C/Folic Ac 1 Tab PO SCH (06:00)
[2024-10-25 06:15] LABS: BASOPHILS ABSOLUTE AUTO 0.05 K/mm3 (0.00-0.23); BASOPHILS PERCENT AUTO 1 % (0-2); EOSINOPHILS ABSOLUTE AUTO 0.19 K/mm3 (0.00-0.68); EOSINOPHILS PERCENT AUTO 3 % (0-6); Hematocrit 31.8 % (37.0-53.0); Hemoglobin 10.2 g/dL (13.5-17.5); IMMATURE GRAN ABSOLUTE AUTO 0.03 K/mm3 (0.00-0.10); IMMATURE GRAN PERCENT AUTO 0 % (0-1); LYMPHOCYTES ABSOLUTE AUTO 1.48 K/mm3 (0.84-5.20); LYMPHOCYTES PERCENT AUTO 20 % (21-46); MONOCYTES ABSOLUTE AUTO 1.17 K/mm3 (0.16-1.47); MONOCYTES PERCENT AUTO 16 % (4-13); Mean Corpuscular HGB 30.7 pg (26.0-34.0); Mean Corpuscular HGB Conc 32.1 g/dL (31.5-36.5); Mean Corpuscular Volume 96 fL (80-100); Mean Platelet Volume 10.2 fL (9.1-12.4); NEUTROPHILS PERCENT AUTO 61 % (41-73); Platelet Count 252 K/mm3 (150-400); RDW Coefficient Variation 17.8 % (11.7-14.2); RDW Standard Deviation 59.7 fL (35.1-46.3); Red Blood Cell Count 3.32 M/mm3 (4.30-5.90); White Blood Cell Count 7.52 K/mm3 (4.00-11.30)
--- NOTE | 2024-10-25 06:15 | NUR ---
EOS/TELEMETRY CHANGE: PATIENT HAD ONCE AGAIN WOKE UP FORGETFUL TO PLACE, REDIRECTABLE, ADDITIONALLY WHILE HE WAS ANXIOUS INCREASED HR, AND TELE CHANGE. EKG OBTAINED AFIB, KNOWN HISTORY RATE CONTROLLED, <105. SYSTOLIC BLOOD PRESSURE STILL HYPERTENSIVE, ENDORSING A HEADACHE TO WHICH HE HAS HAD SINCE ADMISSION. NO CHANGE IN PUPILS, STRENGTH EQUAL AND REACTIVE. CALL TO RESIDENT FOR VBG AND CBC. NO ACUTE CONCERN NOTED. PATIETN TOLERATING MOVEMENT MILD NAUSEA THAT COMES AND GOES, DENIES CHEST PAIN PRESSURE , CAN BE SOB WITH EXERTION. JE WAS LEAKING 2 INCONTINENT VOIDS AND 150mL NOTED IN WICKING CANISTER.NO BM FOR THIS RN. PLAN OF CARE CONTINUES.
[2024-10-25 06:51] LABS: Base Excess Venous 6.7 mmol/L; Bicarbonate Venous 29.7 mmol/L (24.0-30.0); pH Blood Venous 7.44 (7.34-7.37)
[2024-10-25] MEDS ORDERED: Ondansetron HCl 2 MG / ML 2ML Vial IV PRN (08:00)
[2024-10-25] MEDS ORDERED: Rivaroxaban 10 MG Tab PO SCH (09:00)
[2024-10-25] MEDS ORDERED: Allopurinol 100 MG Tab PO SCH (09:00)
[2024-10-25] MEDS ORDERED: Atorvastatin 10 MG Tab PO SCH (09:00)
[2024-10-25] MEDS ORDERED: METO50ER PO (16:14)
--- NOTE | 2024-10-25 17:52 | NUR ---
DISCHARGE NOTE PT WAS ALERT AND ORIENTED TO SELF, PLACE, SITUATION AND PERSON. HE WAS FORGETFUL AT TIMES BUT WAS ABLE TO MAKE HIS NEEDS KNOWN. VSS. HE DENIED FEELINGS OF CHEST PAIN/PRESSURE DURING SHIFT, HE DENIED FEELING SOB. NAUSEA REPORTED BUT WAS RESOLVED AFTER MEDICATION PER EMAR ORDERS. PT WENT TO DIALYSIS THIS AFTERNOON AND REPORTED FEELING "MUCH BETTER." HEADACHE REPORTED DURING SHIFT, PLEASE SEE EMAR FOR PAIN MANAGEMENT. THIS RN DISCUSSED DISCHARGE INSTRUCTIONS W/ PT AND PT'S DAUGHTER [place] INCLUDING FOLLOW UP APPOINTMENTS AND DISCHARGE MEDICATIONS. PT REPORTED R HIP PAIN DURING SHIFT AND DAUGHTER IN LAW REPORTED THAT PT SUFFERED A FALL ON 09/30/24, R HIP X-RAY COMPLETED DURING SHIFT. PT LEFT PCU VIA WHEELCHAIR AT APPROX. [id number].
[2024-10-25 17:54] LABS: HEPATITIS A ANTIBODY, IGM Negative (Negative); HEPATITIS B CORE ANTIBODY, IGM Negative (Negative); HEPATITIS B SURFACE ANTIGEN Negative (Negative); HEPATITIS C AB CIA INTERP Negative (Negative); HEPATITIS C ANTIBODY CIA INDEX 0.13 IV
[2024-10-25 18:04] LABS: HEPATITIS B SURFACE ANTIBODY <3.10 IU/L
== END 2024-10-25 17:01 | disposition home or self-care (01) | DRG 640 ==
LOC: ER 21:44 → PCU 10-24 00:53 → ICUE 10-24 00:53 → PCU 10-24 00:53
PROVIDERS: Emergency Medicine; Hospitalist; Internal Medicine; Student in an Organized Health Care Education/Training Program; ADMIT Student in an Organized Health Care Education/Training Program
PROC: 5A1D70Z Performance of Urinary Filtration, Intermittent, Less than 6 Hours Per Day (ICD-10-PCS; principal; 2024-10-24)
DX: E87.70 Fluid overload, unspecified (principal); N18.6 End stage renal disease; I48.20 Chronic atrial fibrillation, unspecified; N05.2 Unspecified nephritic syndrome with diffuse membranous glomerulonephritis; J81.1 Chronic pulmonary edema; E87.5 Hyperkalemia; E78.5 Hyperlipidemia, unspecified; J44.9 Chronic obstructive pulmonary disease, unspecified; I10 Essential (primary) hypertension; R19.7 Diarrhea, unspecified; E87.1 Hypo-osmolality and hyponatremia; D63.1 Anemia in chronic kidney disease; I44.0 Atrioventricular block, first degree; E87.20 Acidosis, unspecified; Z86.73 Personal history of transient ischemic attack (TIA), and cerebral infarction without residual deficits; Z99.2 Dependence on renal dialysis; Z91.158 Patient's noncompliance with renal dialysis for other reason; Z79.51 Long term (current) use of inhaled steroids
CPT/HCPCS: 36415; 71046; 73502; 80048; 80053; 80069; 80074; 82803; 82947; 83735; 83880; 84100; 84132; 84484; 85025; 87428-QW; 87493; 93005; 93010; 94640; 94660; 94664; 94762; 96374; 96375; 99285-25; A9270; J0612; J1644; J1815; J7799

== ENCOUNTER → 2024-12-14 | Outpatient (CLI) | payer MEDICARE ==
[~2024-12-14] MED LIST changes: +ALLOPURINOL100 M1 PO; +BUMETANIDE2 M6 PO
== END ==
LOC: LAB 14:40 → LAB SHORT 14:40
DX: N18.6 End stage renal disease (principal)
CPT/HCPCS: 87040

== ENCOUNTER → 2025-07-21 | Outpatient (CLI) | payer MEDICARE | LOC: LAB 12:45 | DX: N18.6 End stage renal disease (principal); Z99.2 Dependence on renal dialysis ==

== ENCOUNTER 2025-07-26 05:00 | Inpatient (IN) | payer MEDICARE ==
[~2025-07-26] VITALS: Ht 175.3 cm; Wt 90.7 kg
[2025-07-26] MEDS ORDERED: LOSA50 PO (05:39)
[2025-07-26] MEDS ORDERED: AMLODIPINE BESY10 MG PO (05:40)
[2025-07-26 05:41] LABS: BASOPHILS ABSOLUTE AUTO 0.03 K/mm3 (0.00-0.23); BASOPHILS PERCENT AUTO 0 % (0-2); EOSINOPHILS ABSOLUTE AUTO 0.15 K/mm3 (0.00-0.68); EOSINOPHILS PERCENT AUTO 2 % (0-6); Hematocrit 26.8 % (37.0-53.0); Hemoglobin 8.7 g/dL (13.5-17.5); IMMATURE GRAN ABSOLUTE AUTO 0.03 K/mm3 (0.00-0.10); IMMATURE GRAN PERCENT AUTO 0 % (0-1); LYMPHOCYTES ABSOLUTE AUTO 1.43 K/mm3 (0.84-5.20); LYMPHOCYTES PERCENT AUTO 16 % (21-46); MONOCYTES ABSOLUTE AUTO 1.10 K/mm3 (0.16-1.47); MONOCYTES PERCENT AUTO 13 % (4-13); Mean Corpuscular HGB Conc 32.5 g/dL (31.5-36.5); Mean Corpuscular Volume 103 fL (80-100); NEUTROPHILS ABSOLUTE AUTO 6.04 K/mm3 (1.96-9.15); NEUTROPHILS PERCENT AUTO 69 % (41-73); NRBC ABSOLUTE 0.00 K/mm3 (0.00-0.02); NRBC Auto 0.0 /100 WBC (0.0-0.2); Platelet Count 137 K/mm3 (150-400); RDW Coefficient Variation 14.1 % (11.7-14.2); RDW Standard Deviation 53.3 fL (35.1-46.3)
[2025-07-26 06:25] LABS: Magnesium, Blood 2.5 mg/dL (1.6-2.4)
[2025-07-26 06:29] LABS: Alanine Aminotransfer (ALT/SGP 8 U/L (12-78); Albumin, Blood 3.4 g/dL (3.4-5.0); Albumin/Globulin Ratio 0.9 (0.8-1.8); Anion Gap 19 mmol/L (3-11); Aspartate Aminotrans (AST/SGOT <3 U/L (12-37); Bilirubin, Total 0.4 mg/dL (0.1-1.0); Blood Urea Nitrogen 76 mg/dL (8-24); CO2, Blood 22 mmol/L (21-32); Calcium, Blood 9.1 mg/dL (8.5-10.1); Chloride, Blood 99 mmol/L (98-108); Creatinine, Blood 16.50 mg/dL (0.60-1.20); Globulin, Blood 3.6 g/dL (2.2-4.0); Glucose, Blood 110 mg/dL (70-99); Potassium, Blood 4.3 mmol/L (3.5-5.5); Sodium, Blood 136 mmol/L (136-145); Total Protein, Blood 7.0 g/dL (6.4-8.2)
[2025-07-26] MEDS ORDERED: FLU VACC TS2025(65UP)/MF59C/PF 45 MCG/0.5 ML SYRINGE IM SCH (07:40)
[2025-07-26] MEDS ORDERED: Albuterol HFA200 ACT/6.7 GM INH INH PRN (07:40)
[2025-07-26] MEDS ORDERED: Formoterol/Mometasone MDI 5/200 mcg 13 GM INH SCH (07:40)
[2025-07-26 09:25] VITALS: BP 147/107
--- NOTE | 2025-07-26 10:53 | NUR ---
RECEIVED A CALL FROM AMPARO RN NURSING GRAIN BLENDER THAT PT WILL RECEIVE DIALYSIS TOMORROW RATHER THAN TODAY. DR. KHALIL IN TO SEE PT SHORTLY AFTER AND WAS NOTIFIED OF TIME WHEN DIALYSIS TO OCCUR. STATED PT DOESN'T NEED A TEMPORARY CATHETER BUT RATHER A TUNNELED CATHETER WHICH WILL BE PLACE TOMORROW. TO BE NPO AFTER MIDNIGHT TONIGHT. PRIMARY RN NOTIFIED UPON RETURN FROM BREAK AND COOK MESS NOTIFIED. PT AWARE OF PLAN AND WAS ABLE TO REPEAT BACK THE PLAN TO THIS RN.
--- NOTE | 2025-07-26 11:26 | NUR ---
ADMIT NOTE- RECIEVED A CALL FROM DIALYSIS, THE PT WILL NOT BE RUN TODAY. DR KHALIL AWARE. PERMACATH WILL NOT BE PLACED TODAY. PT OK TO EAT. CALLED DR ALARCON AND RECIEVED A RENAL DIET WITH 1500ML FLUID RESTRICTION. PT TO BE NPO AT MIDNIGHT FOR PERMACATH PLACEMENT. THEN DIALYSIS TOMORROW AFTER THAT.
[2025-07-26] MEDS ORDERED: RENAL MULTIVIT1 EACH PO (11:35)
[2025-07-26] MEDS ORDERED: THERA-D2000 UNIT PO (11:37)
[2025-07-26 12:11] VITALS: BP 169/95
[2025-07-26 16:44] VITALS: BP 145/95
--- NOTE | 2025-07-26 18:55 | NUR ---
SHIFT SUMMARY- PT ALERT, ORIENTED AND INDEPENDENT IN THE ROOM. HE IS SUPPOSED TO BE NPO AT MIDNIGHT FOR PERMACATH PLACEMENT TOMORROW WITH DR KHALIL. DIALYSIS SHOULD BE RUN AFTER PLACEMENT. PT IS CURRENTLY SITTING UP IN BED, CALL LIGHT IN REACH 1500ML FLUID RESTRICTION. NO CRRENT S&S OF DISTRESS NOTED AT THIS TIME. WILL PASS ON IN BEDSIDE REPORT.
[2025-07-26 19:20] VITALS: BP 149/83
[2025-07-27] VITALS (19 sets, daily range): BP systolic 112–166; BP diastolic 79–99
[2025-07-27] MEDS ORDERED: Saline Nasal Spray 45 ML PRN (01:10)
--- NOTE | 2025-07-27 04:21 | NUR ---
SHIFT SUMMARY NOC PT A/O X 4. PLEASANT AND COOPERATIVE WITH CARE. AT BEGINNING OF SHIFT DURING BEDSIDE REPORT, PT REPORTED INCREASED SOB AND O2 89% ON RA WHEN ASSESSED. PT PLACED ON 2L/HFNC HUMIDIFIED O2 AND BIOX AFTER HOSPITALIST NOTIFIED. THERE IS A RN NOTIFY IF O2 DEMANDS CONTINUE TO INCREASE TO NOTIFY MD FOR EMERGENT PERMACATH PLACEMENT SO PT CAN HAVE DIALYSIS. PT HAS PERMACATH PLACEMENT SURGERY SCHEDULED FOR TODAY REGARDLESS. PT HAS BEEN ON AND OFF O2 AND SPO2 >92%. PT ON TELE AFLUTTER IN 'S. PT HAS BEEN NPO SINCE MIDNIGHT. PT ALSO REPORTS CONSTIPATION AND LAST BM WAS 3 DAYS AGO, HOSPITALIST NOTIFIED AND BOWEL CARE RX STARTED. PT CURRENTLY RESTING WITH BED IN LOWEST POSITION, AND CALL LIGHT WITHIN REACH.
[2025-07-27 09:07] LABS: Albumin, Blood 3.1 g/dL (3.4-5.0); Anion Gap 21 mmol/L (3-11); Blood Urea Nitrogen 84 mg/dL (8-24); CO2, Blood 23 mmol/L (21-32); Calcium, Blood 9.2 mg/dL (8.5-10.1); Chloride, Blood 98 mmol/L (98-108); Creatinine, Blood 17.60 mg/dL (0.60-1.20); Glucose, Blood 71 mg/dL (70-99); Phosphorus, Blood 9.0 mg/dL (2.5-4.9); Potassium, Blood 4.5 mmol/L (3.5-5.5); Sodium, Blood 137 mmol/L (136-145)
--- NOTE | 2025-07-27 13:26 | NUR ---
Pt. came to dialysis room today to attempt to use fistula to get pt a tx before he had his permacath placed as pt was feeling very SOB. We were able to use fistula for tx and he got a good tx with 3 ltrs removed. Pt reports feeling much better after dialysis and reports that hes ready to get permacath and get home.
[2025-07-27] MEDS ORDERED: Heparin Sodium 1000 Units/ML 10ML MDV ONE (14:47)
[2025-07-27] MEDS ORDERED: NS 250 ML IV ONE (14:47)
[2025-07-27] MEDS ORDERED: Midazolam HCl 1MG / ML 2ML Vial ONE (14:54)
[2025-07-27] MEDS ORDERED: FentaNYL Citrate 50 MCG/ML 2 ML Injection ONE (14:54)
[2025-07-27] MEDS ORDERED: NS 500 ML IV ONE (14:55)
[2025-07-27] MEDS ORDERED: Heparin Sodium 10,000 Units/ML 1ML MDV ONE (15:30)
--- NOTE | 2025-07-27 17:43 | NUR ---
PT DISCHARGED TO HOME AFTER PERMACATH PLACEMENT. DISCHARGE INSTRUCTIONS PROVIDED AND EDUCATED ON AT TIME OF DISCHARGE. ALL VALUABLES RETURNED AND SENT HOME WITH THE PT.
== END 2025-07-27 17:57 | disposition home or self-care (01) | DRG 314 ==
LOC: ER 05:00 → MEDS 05:01
PROVIDERS: Emergency Medicine; ADMIT Internal Medicine
PROC: 0JH63XZ Insertion of Tunneled Vascular Access Device into Chest Subcutaneous Tissue and Fascia, Percutaneous Approach (ICD-10-PCS; principal; 2025-07-27)
PROC: 02HV33Z Insertion of Infusion Device into Superior Vena Cava, Percutaneous Approach (ICD-10-PCS; 2025-07-27)
PROC: B518ZZA Fluoroscopy of Superior Vena Cava, Guidance (ICD-10-PCS; 2025-07-27)
PROC: B548ZZA Ultrasonography of Superior Vena Cava, Guidance (ICD-10-PCS; 2025-07-27)
DX: T82.511A Breakdown (mechanical) of surgically created arteriovenous shunt, initial encounter (principal); N18.6 End stage renal disease; I12.0 Hypertensive chronic kidney disease with stage 5 chronic kidney disease or end stage renal disease; J81.1 Chronic pulmonary edema; I48.20 Chronic atrial fibrillation, unspecified; Y71.2 Prosthetic and other implants, materials and accessory cardiovascular devices associated with adverse incidents; E87.70 Fluid overload, unspecified; J44.9 Chronic obstructive pulmonary disease, unspecified; E78.5 Hyperlipidemia, unspecified; Z99.2 Dependence on renal dialysis; Z86.73 Personal history of transient ischemic attack (TIA), and cerebral infarction without residual deficits; Z79.01 Long term (current) use of anticoagulants; Z87.891 Personal history of nicotine dependence; Z79.899 Other long term (current) drug therapy
CPT/HCPCS: 36415; 71045; 76937; 80053; 80069; 83735; 83880; 85025; 93005; 93010; 94640; 94664; 94762; 99152; 99153; 99285-25; A9270; C1750; C1769; C1894; G0378; J1644; J2250; J3010; J7040; J7050